=== PATIENT | female | born 1975 | race Caucasian/White ===

== ENCOUNTER 2018-06-18 15:36 | Outpatient (CLI) | payer BC | END 2018-06-18 15:37 | disposition home or self-care (01) | LOC: BICMAMMO 15:36 | PROVIDERS: ATTEND Obstetrics & Gynecology | DX: Z12.31 Encounter for screening mammogram for malignant neoplasm of breast (principal) | CPT/HCPCS: 77063; 77067 ==

== ENCOUNTER 2024-02-08 07:55 | Outpatient (CLI) | payer BC ==
[2024-02-08 09:09] LABS: #Basophils 0.05 10x3/uL (0.0-0.2); #Eosinphils 0.21 10x3/uL (0.0-0.5); #Monocytes 0.52 10x3/uL (0.0-1.1); #Neutrophils 3.72 10x3/uL (1.5-8.4); %Basophils 0.8 % (0.0-2.0); %Eosinophils 3.3 % (0.0-6.0); %Lymphocytes 28.2 % (18.0-47.0); %Monocytes 8.2 % (0.0-10.0); Hematocrit 38.1 % (34.9-44.5); Hemoglobin 12.7 g/dL (12.0-15.5); Mean Corpuscular HGB CONC 33.3 g/dL (32.0-36.0); Mean Corpuscular Hemoglobin 30.9 pg (27.0-33.0); Mean Corpuscular Volume 92.7 fL (81.6-98.3); Mean Platelet Volume 10.2 fL (7.4-10.4); Platelet Count 292 10x3/uL (150-450); RBC Distribution Width 12.5 % (11.5-14.5); Red Blood Cell (RBC) Count 4.11 10x6/uL (3.90-5.03); White Blood Cell (WBC) Count 6.3 10x3/uL (3.5-10.5)
[2024-02-08 09:47] LABS: Prothrombin Time 10.4 sec (9.5-12.1)
[2024-02-08 09:55] LABS: Anion Gap 15 mmol/L (10-20); BUN (Urea Nitrogen) 8 mg/dL (7.0-18.7); Calc. Creatinine Clearance 0 mL/min (70-130); Calcium 9.4 mg/dL (7.8-10.44); Carbon Dioxide 23 mmol/L (22-29); Chloride 105 mmol/L (98-107); Estimated GFR 75; Glucose 97 mg/dL (70-105); Potassium 4.3 mmol/L (3.5-5.1); Sodium 139 mmol/L (136-145)
== END 2024-02-08 07:56 | disposition home or self-care (01) ==
LOC: LABBT 07:55
PROVIDERS: ATTEND Orthopaedic Surgery
DX: Z01.812 Encounter for preprocedural laboratory examination (principal); M16.12 Unilateral primary osteoarthritis, left hip
CPT/HCPCS: 80048; 85025; 85610; 87081

== ENCOUNTER 2024-02-13 05:34 | Observation (INO) | payer BC ==
[2024-02-13] MEDS ORDERED: Vancomycin (BATCH) 1.5 GM/300 ML BAG ONE (05:49)
[2024-02-13] MEDS ORDERED: Sodium Chloride 0.9% 100 ML ONE ×2 (05:49→06:48)
[2024-02-13] MEDS ORDERED: Tranexamic Acid 1,000 MG/10 ML VIAL ONE (05:49)
[2024-02-13] MEDS ORDERED: PROPOFOL 20 ML ONE (06:27)
[2024-02-13] MEDS ORDERED: fentaNYL 50 mcg/mL 1 mL Vial ONE (06:38)
[2024-02-13] MEDS ORDERED: Midazolam HCl 2 mg/2 ml Vial ONE (06:38)
[2024-02-13] MEDS ORDERED: CEFAZOLIN 2 GM VIAL ONE (06:47)
[2024-02-13] MEDS ORDERED: Lidocaine 1.5% w/Epi 1:200K 30 ML VIAL (Epid Use) ONE (06:55)
[2024-02-13] MEDS ORDERED: Rocuronium Bromide 10 MG/ML (10ML VIAL) ONE (07:40)
[2024-02-13] MEDS ORDERED: fentaNYL PF 100 MCG/2 ML SYRINGE ONE (07:40)
[2024-02-13] MEDS ORDERED: Dexamethasone 20 MG/5 ML VIAL ONE (07:40)
[2024-02-13] MEDS ORDERED: Metoclopramide HCl 10 MG (2 mL) VIAL ONE (07:40)
[2024-02-13] MEDS ORDERED: Ondansetron PF 4 MG/2 ML Vial ONE (07:40)
[2024-02-13] MEDS ORDERED: Ondansetron PF 4 MG/2 ML Vial IVP PRN ×2 (07:45→09:51)
[2024-02-13] MEDS ORDERED: diphenhydrAMINE 25 MG CAP PO PRN ×2 (07:45→09:51)
[2024-02-13] MEDS ORDERED: Zolpidem Tartrate 5 MG TAB PO PRN ×2 (07:45→09:51)
[2024-02-13] MEDS ORDERED: Moisturizing Cream (Eucerin) 113 GM JAR TOP PRN (07:45)
[2024-02-13] MEDS ORDERED: diphenhydrAMINE 50 MG/ML VIAL IM PRN (07:45)
[2024-02-13] MEDS ORDERED: FENTANYL 500 MCG/10 ML VIAL 500 MCG, Bupivacaine 0.75% 10 ML in Sodium Chloride 0.9% 80 ML EPIDURAL SCH (07:45)
[2024-02-13] MEDS ORDERED: traMADol HCl 50 MG TAB PO PRN ×2 (07:45)
[2024-02-13] MEDS ORDERED: Naloxone HCl 0.4 mg/ml Vial IV PRN (07:45)
[2024-02-13] MEDS ORDERED: diphenhydrAMINE 50 MG/ML VIAL IVP PRN (07:45)
[2024-02-13] MEDS ORDERED: Promethazine HCl 25 MG SUPP PR PRN (07:45)
[2024-02-13] MEDS ORDERED: Naloxone HCl 0.4 mg/ml Vial IVP PRN (07:45)
[2024-02-13] MEDS ORDERED: Promethazine HCl 25 MG/ML VIAL IM PRN ×3 (07:45→09:51)
[2024-02-13] MEDS ORDERED: Bupivacaine 0.25% 10 ML VIAL EPIDURAL PRN (07:45)
[2024-02-13] MEDS ORDERED: PHENYLEPHRINE-NS 100 MCG/ML 10 ML SYRINGE ONE (07:54)
[2024-02-13] MEDS ORDERED: Ondansetron HCl/PF 4 MG/2 ML Vial IVP PRN (07:57)
[2024-02-13] MEDS ORDERED: Lidocaine 2% PF 5 ML VIAL ONE (09:05)
[2024-02-13] MEDS ORDERED: Dexmedetomidine 200 MCG/2 ML VIAL ONE (09:06)
[2024-02-13] MEDS ORDERED: SUGAMMADEX SODIUM 200 MG/2 ML VIAL ONE (09:16)
[2024-02-13] MEDS ORDERED: Acetaminophen 325 MG TAB PO PRN (09:51)
[2024-02-13 11:34] VITALS: BMI 34.4
[2024-02-13] MEDS: Aspirin 81 mg Enteric Coated Tablet PO SCH ×2 (11:47→21:01)
[2024-02-13] MEDS: Ketorolac Tromethamine 30 MG (1 mL) VIAL IVP SCH (11:47)
[2024-02-13] MEDS ORDERED: Gentamicin Ophth Soln 0.3% 5 ml Bottle ONE (12:30)
[2024-02-13] MEDS ORDERED: Tobramycin/Dexamethasone Ophth Oint 3.5 GM TUBE ONE (12:31)
[2024-02-13] MEDS: HYDROcodone/Acetaminophen 5/325 mg Tablet PO PRN ×2 (14:05→18:32)
[2024-02-13] MEDS: CEFAZOLIN 2 GM in Sodium Chloride 0.9% 100 ML IVPB SCH (14:06)
[2024-02-14 05:10] LABS: Hematocrit 28.5 % (36.0-47.0); Hemoglobin 9.5 g/dL (12.0-16.0); Mean Corpuscular HGB CONC 33.3 g/dL (32.0-36.0); Mean Corpuscular Hemoglobin 30.4 pg (27.0-31.0); Mean Corpuscular Volume 91.3 fL (78.0-98.0); Mean Platelet Volume 10.1 fL (7.4-10.4); Platelet Count 217 10x3/uL (130-400); RBC Distribution Width 12.4 % (11.5-14.5); Red Blood Cell (RBC) Count 3.12 mill/uL (4.20-5.40)
[2024-02-14] MEDS: Multivitamin W/ Minerals 1 TAB PO SCH (09:15)
[2024-02-14] MEDS: Senokot S 8.6-50 MG TAB PO SCH (09:15)
[2024-02-14] MEDS: Ferrous Gluconate 324 MG TAB PO SCH (09:15)
[2024-02-14 11:39] VITALS: BP 131/79; TEMP 99.1
== END 2024-02-14 12:25 | disposition home or self-care (01) ==
LOC: SDC 05:34 → SURG B 10:55
PROVIDERS: ADMIT Orthopaedic Surgery; ATTEND Orthopaedic Surgery
PROC: 0SRB0JZ Replacement of Left Hip Joint with Synthetic Substitute, Open Approach (ICD-10-PCS; principal; 2024-02-14)
DX: M16.12 Unilateral primary osteoarthritis, left hip (principal); I47.10 Supraventricular tachycardia, unspecified; I49.9 Cardiac arrhythmia, unspecified; K21.9 Gastro-esophageal reflux disease without esophagitis; F32.A Depression, unspecified; Z98.51 Tubal ligation status; Z79.899 Other long term (current) drug therapy; Z91.041 Radiographic dye allergy status; Z88.6 Allergy status to analgesic agent; Z88.2 Allergy status to sulfonamides
CPT/HCPCS: 36415; 72170; 85027; C1713; C1776; J1100; J1885; J2001; J2250; J2405; J2704; J2765; J3010; J3370; J3490